=== PATIENT | male | born 1985 | race Caucasian/White ===

== ENCOUNTER 2020-03-02 08:01 | Outpatient (CLI) | payer SELFPAY ==
[2020-03-06 21:50] LABS: SARS-CoV-2 RNA Undetected (Undetected); SARS-CoV-2 Specimen Source Nasopharynx
== END 2020-03-02 08:21 ==
PROVIDERS: PCP Family Medicine; Visit Provider Family Medicine
DX: Z11.59 Encounter for screening for other viral diseases (principal)
CPT/HCPCS: U0003

== ENCOUNTER → 2020-09-01 19:43 | Outpatient (REF) | payer SELFPAY ==
[2020-09-01 16:50] LABS: Abs Immature Grans 0.03 10^3/uL (0.0-0.06); Absolute Basophil Count 0.08 10^3/uL (0.0-0.2); Absolute Eosinophil Count 0.06 10^3/uL (0.0-0.7); Absolute Lymphocyte Count 1.08 10^3/uL (1.2-3.4); Absolute Monocyte Count 0.49 10^3/uL (0.1-0.8); Absolute Neutrophil Count 2.78 10^3/uL (1.2-6.7); Basophils % 1.8; Eosinophils % 1.3; HCT 37.6 % (40.0-50.0); HGB 12.7 g/dL (13.5-17.5); Immature Grans % 0.7; Lymphocytes % 23.9; MCHC 33.8 % (32.0-36.0); MCV 94.7 fL (80-95); MPV 10.4 fL (8.0-11.0); Monocytes % 10.8; Neutrophils % 61.5; Nucleated RBC 0 %; Platelet Count 265 10^3/uL (130-400); RBC 3.97 10^6/uL (4.36-5.78); RDW 12.6 % (11.8-14.1); RDW-SD 43.9 fL; WBC 4.52 10^3/uL (4.4-10.8)
[2020-09-01 17:03] LABS: ALT 20 U/L (16-63); AST 9 U/L (15-37); Albumin 3.6 g/dL (3.4-5.0); Alkaline Phosphatase 153 U/L (46-116); Anion Gap 23.2 mmol/L (3-11); BUN 12 mg/dL (7-18); Bilirubin, Total 0.4 mg/dL (0.2-1.0); CO2 15.8 mmol/L (21.0-32.0); CREATININE 1.08 mg/dL (0.70-1.30); Calcium 8.5 mg/dL (8.5-10.1); Chloride 92 mmol/L (98-107); Potassium 3.6 mmol/L (3.5-5.1); Sodium 131 mmol/L (136-145); Total Protein 7.1 g/dL (6.4-8.2)
[2020-09-01 17:18] LABS: Cholesterol 411 mg/dL (<200); HDL Cholesterol 49 mg/dL (40-60); Triglyceride 766 mg/dL (<150)
[2020-09-01 17:26] LABS: Glucose 610 mg/dL (74-106)
[2020-09-01 17:41] LABS: LDL CHOLESTEROL 198 mg/dL (<100)
[2020-09-04 10:24] LABS: Hemoglobin A1C >16.9 % (<5.7)
== END ==
LOC: NCHCN 19:43
PROVIDERS: PCP Family Medicine; Visit Provider Nurse Practitioner Family
DX: R22.0 Localized swelling, mass and lump, head (principal); E78.5 Hyperlipidemia, unspecified; K04.7 Periapical abscess without sinus
CPT/HCPCS: 80053; 80061; 82947; 83721; 83036; 85025; 87070; 87205

== ENCOUNTER 2020-09-07 03:01 | Outpatient (CLI) | payer SELFPAY ==
--- NOTE | 2020-09-07 08:30 | DI.CT_ITS ---
EXAM: CT FACIAL W CLINICAL HISTORY: left lower mandibular mass,R22.0. TECHNIQUE: Imaging Protocol: Axial computed tomography images with coronal and sagittal reformatted images were created and reviewed. IV contrast was injected-on the James 350/100 cc COMPARISON: No exams were available for comparison FINDINGS: MAXILLOFACIAL CT SCAN: There is no evidence of facial fractures nor fluid the visualized paranasal sinuses and mastoid air c ells.. There is no evidence of orbital blowout fracture. No significant orbital findings. There is soft tissue swelling lateral to left side of the mandible with a fluid collection measuring approximately 10 x 10 millimeters by 19 millimeter probable abscess. Dental: There are periapical lucencies on both sides of the maxilla representing periapical abscesses as well as lytic areas in both sides of the maxilla. These appear to be dental related. Possible o steomyelitis of maxilla appear there also periapical lucencies in the mandible bilaterally, similar p rocess.. IMPRESSION: Prominent confluent periapical lucencies on both sides of the maxilla consistent with periapical apic es and adjacent lytic areas in the maxilla bilaterally which may represent osteomyelitis. There is n o fluid in the maxillary sinuses. Periportal lucency is also evident on both sides the mandible which are most probably also abscesses There is a 10 x 10 x 19 millimeter fluid collection lateral the left side of the mandible which is pr obably an abscess. No fluid levels evident in the maxillary sinuses and no significant mucosal thickening in the paranas al sinuses nor within the mastoid air cells appear RADIATION DOSE DELIVERED: 445.42mGy.cm Total DLP DATA REPOSITORY: All CT scans at this facility are submitted to the National Radiology Data Registry (NRDR) Dose Index Registry (DIR) with the [employer] (A[employer]). RADIATION OPTIMIZATION: All CT scans at this facility use at least one of these dose optimization te chniques: automated exposure control; mA and/or kV adjustment per patient size (includes targeted exa ms where dose is matched to clinical indication); or iterative reconstruction.
[2020-09-07] MEDS: Omnipaque 350 MG/ML 100 ML BTL IV (15:34)
[2020-09-07] MEDS: Normal Saline - Diluent 50 ML VIAL IV (15:37)
--- NOTE | 2020-09-07 16:06 | DI.VRAD_ITS ---
PROCEDURE INFORMATION: Exam: CT Maxillofacial With Contrast; Mandible Exam date and time: 09/07/2020 3:39 PM Age: 35 years old Clinical indication: Mass, lump, or swelling; Other: Mandibular mass TECHNIQUE: Imaging protocol: Computed tomography maxillofacial with intravenous contrast. Exam focused on the mandible. Radiation optimization: All CT scans at this facility use at least one of these dose optimization techniques: automated exposure control; mA and/or kV adjustment per patient size (includes targeted exams where dose is matched to clinical indication); or iterative reconstruction. Contrast material: OMNIPAQUE 350; Contrast volume: 100 ml; Contrast route: INTRAVENOUS (IV); COMPARISON: No relevant prior studies available. FINDINGS: Orbital cavity: Orbits are normal. Globes are unremarkable. Bones/joints: See Dental finding. Paranasal sinuses: Normal. No air-fluid levels. Soft tissues: Soft tissue swelling to the left of the mandible. Fluid collection lateral to the left mandible measures 10 x 9 mm. Series 3, image 47 -61. It measures 2 cm in the craniocaudal dimension. Series 4, image 46 May represent abscess. Dental: Periapical lucencies in the maxilla may represent periapical abscess. Lytic areas in the maxilla bilaterally. Series 3 image 81-84 . May represent osteomyelitis. . Periapical lucencies in the mandible bilaterally consistent with periapical abscesses.. IMPRESSION: 1. Periapical lucencies in the maxilla may represent periapical abscess. Lytic areas in the maxilla bilaterally. Series 3 image 81-84 . May represent osteomyelitis. . 2. Periapical lucencies in the mandible bilaterally consistent with periapical abscesses.. 3. Fluid collection lateral to the left mandible measures 10 x 9 mm. Series 3, image 47 -61. It measures 2 cm in the craniocaudal dimension. Series 4, image 46 May represent abscess. Dictated and Authenticated by: Mando Nelson MD. Ordering:DIPTI Sutton MD
== END 2020-09-07 03:21 ==
PROVIDERS: PCP Family Medicine; Visit Provider Nurse Practitioner Family
DX: R22.0 Localized swelling, mass and lump, head (principal); M27.8 Other specified diseases of jaws
CPT/HCPCS: 70487; J3490

== ENCOUNTER 2020-09-07 18:14 | Inpatient (IN) | payer MEDICAID, SELFPAY ==
[2020-09-07] VITALS (9 sets, daily range): BP systolic 111–132; BP diastolic 63–83; PULSE 96–114; RESP 14–22; TEMP 36.4–36.6; O2SAT 95–99
[2020-09-07] MEDS: Normal Saline 1,000 ML 1000 ML IV (18:55)
--- NOTE | 2020-09-07 19:05 | W.ED.GENAD ---
Discharge Plan Disposition Patient Disposition: [facility] INPATIENT Condition: Stable Discharge Details Clinical Impression: DKA (diabetic ketoacidoses), Hyponatremia, Acute osteomyelitis of mandible, Dental abscess Admit Date/Time: 09/07/20 20:54 Admit Provider: Silviano Arellano Attending Provider: Silviano Arellano Primary Care Provider: Adolfo Trammell ED Provider: Elidia Nichole Discharge Data Discharge Date/Time-TO BE ENTERED AT DEPARTURE: 09/07/20 22:59 Medical Decision Making 35-year-old male with a history of GERD and former prescription drug abuse currently on Suboxone presents for evaluation and admission for potential DKA with osteomyelitis noted on outpatient base CT today. Glucose on arrival 532. Heart rate 110. Blood pressure within normal limits. He is afebrile and appears nontoxic. He has poor dentition throughout. No obvious dental abscesses noted although he does have left lower jaw swelling noted externally. No drooling, trismus, lymphadenopathy or submandibular swelling. Lungs clear bilaterally. Outpatient facial CT noted: Prominent confluent periapical lucencies on both sides of the maxilla consistent with periapical apices and adjacent lytic areas in the maxilla bilaterally which may represent osteomyelitis. There is no fluid in the maxillary sinuses. Periportal lucency is also evident on both sides the mandible which are most probably also abscesses There is a 10 x 10 x 19 millimeter fluid collection lateral the left side of the mandible which is probably an abscess. No fluid levels evident in the maxillary sinuses and no significant mucosal thickening in the paranasal sinuses nor within the mastoid air cells. Case discussed with [facility] ENT who reviewed images. Recommend medical management at this time with IV antibiotics. Recommend Unasyn 3 g IV every 6 hours. No recommendation for transfer or acute intervention at this time including IV drainage. Recommend management of DKA at this time and then follow-up with oral surgery as outpatient. Labs reviewed. Normal white blood cell count. VBG notes a pH of 7.36. Bicarb 22. Lactate 3.5. Sodium 123. Potassium 3.3. Bicarb 21.9, anion gap 16.1. Glucose 610. Urinalysis no ketones. Will treat with 8 units of insulin and insulin drip. Will give potassium supplementation. Case discussed with hospitalist who accepts patient for admission. Patient is agreeable with plan. Imaging Data Radiologic Study: Radiologist's impression: CT FACIAL W CLINICAL HISTORY: left lower mandibular mass,R22.0. TECHNIQUE: Imaging Protocol: Axial computed tomography images with coronal and sagittal reformatted images were created and reviewed. IV contrast was injected-on the James 350/100 cc COMPARISON: No exams were available for comparison FINDINGS: MAXILLOFACIAL CT SCAN: There is no evidence of facial fractures nor fluid the visualized paranasal sinuses and mastoid air cells.. There is no evidence of orbital blowout fracture. No significant orbital findings. There is soft tissue swelling lateral to left side of the mandible with a fluid collection measuring approximately 10 x 10 millimeters by 19 millimeter probable abscess. Dental: There are periapical lucencies on both sides of the maxilla representing periapical abscesses as well as lytic areas in both sides of the maxilla. These appear to be dental related. Possible osteomyelitis of maxilla appear there also periapical lucencies in the mandible bilaterally, similar process.. IMPRESSION: Prominent confluent periapical lucencies on both sides of the maxilla consistent with periapical apices and adjacent lytic areas in the maxilla bilaterally which may represent osteomyelitis. There is no fluid in the maxillary sinuses. Periportal lucency is also evident on both sides the mandible which are most probably also abscesses There is a 10 x 10 x 19 millimeter fluid collection lateral the left side of the mandible which is probably an abscess. No fluid levels evident in the maxillary sinuses and no significant mucosal thickening in the paranasal sinuses nor within the mastoid air cells. HPI General Mode of arrival: ambulatory. Date/Time Provider Initiated Documentation: 09/07/20 18:17. Limitations to Documentation: no limitations. Information obtained by: patient. HPI Narrative: Patient is a 35-year-old male with a history of GERD, former prescription drug abuse currently on Suboxone for past 7 years, history of chewing tobacco who presents after sent by [facility] for further evaluation of hyperglycemia and osteomyelitis noted in mandible today on outpatient facial CT. Patient states he has had left lower jaw swelling and minimal pain for the past 6 weeks which has been treated by [facility] with 2 rounds of penicillin and 1 round of Augmentin which she finished today. He states they referred him for outpatient facial CT which today noted dental abscesses and left-sided mandible osteomyelitis. He returned back to [facility] office today and his blood sugar was greater than 1000 and he was told to go directly to the ER. Glucose on arrival 532. Patient denies any significant dental or jaw pain and states he mainly has left lower jaw swelling. He denies any fever, sore throat, difficulty swallowing, chest pain or shortness of breath. He does admit to polyuria and polydipsia recently. He was unaware of a history of diabetes. Related Data Home Medications Medication Instructions Recorded Confirmed buprenorphine-naloxone [Suboxone 8 1 ea SUBLINGUAL DAILY film 09/04/14 09/07/20 Mg-2 Mg Sl Film] omeprazole 40 mg capsule,delayed 40 mg PO DAILY #90 cap 03/07/20 09/07/20 release albuterol sulfate 90 mcg/actuation 2 puff IH Q4H PRN #6.7 g 09/01/20 09/07/20 aerosol inhaler amoxicillin 875 mg-potassium 1 tab PO BID #14 tab 09/01/20 09/07/20 clavulanate 125 mg tablet chlorhexidine gluconate 0.12 % 15 ml MUCOUS MEMBRANE BID #473 ml 09/01/20 09/07/20 mouthwash gabapentin 1,600 mg PO HS 09/07/20 09/07/20 Previous Rx's Medication Instructions Recorded omeprazole 40 mg capsule,delayed 40 mg PO DAILY #90 cap 03/07/20 release albuterol sulfate 90 mcg/actuation 2 puff IH Q4H PRN #6.7 g 09/01/20 aerosol inhaler amoxicillin 875 mg-potassium 1 tab PO BID #14 tab 09/01/20 clavulanate 125 mg tablet chlorhexidine gluconate 0.12 % 15 ml MUCOUS MEMBRANE BID #473 ml 09/01/20 mouthwash Allergies Allergy/AdvReac Type Severity Reaction Status Date / Time No Known Allergies Allergy Verified 09/07/20 18:23 General Stated Complaint: Diabetes SHANTHI: 3 Review of Systems All systems reviewed & are unremarkable except as noted in HPI and below Constitutional Constitutional: Reports as per HPI, Denies chills and Denies fever(s) Eyes Eyes: Denies blurry vision ENT Ears, Nose, Mouth, and Throat: Denies dizziness, Denies sore throat, Denies throat swelling and Reports other (Left jaw swelling) Cardiovascular Cardiovascular: Denies chest pain and Denies dyspnea Respiratory Respiratory: Denies cough and Denies dyspnea Gastrointestinal Gastrointestinal: Denies abdominal pain, Denies diarrhea and Denies vomiting Genitourinary Genitourinary: Denies hematuria, Denies dysuria and Reports other (Polyuria) Musculoskeletal Musculoskeletal: Denies back pain and Denies numbness Integumentary/Breasts Skin/Breast: Denies lesions and Denies rash Neurologic Neurologic: Denies dizziness, Denies localized weakness and Denies numbness Allergic/Immunologic Allergic/Immunologic: Denies throat swelling COUNTS INCLUDE 234 BEDS AT THE [facility] Medical History (Updated 09/09/20 @ 09:20 by Valeriano Moses) GERD (gastroesophageal reflux disease) Hyperlipidemia Opioid dependence on agonist therapy Tobacco chew use Type 1 diabetes mellitus Surgical History Vasectomy (09/24/17) Social History Smoking/Tobacco Use Status: Current every day Tobacco Type: smokeless tobacco Smokeless tobacco user: chewing tobacco Quit status: not considering quitting Smoking risk assessment performed?: Yes Alcohol Intake: current Alcohol Intake frequency: 0-2 drinks per day Alcohol type: beer Drug use: Daily Substance use type: marijuana Details: pt states he has been cutting back on alcohol, has 3 drinks every other day. Had two beers on [address] here. Caregiver/Support person: No Household members: significant other and children Housing: apartment Communication Needs: None Do you need help understanding health information?: Rarely Pets and animals: No Sexually active: Yes Do you think of yourself as: straight/heterosexual Current gender identity: male What is your relationship status?: living with partner How often do you talk on the phone with friends or family?: three or more times per week How often do you get together with friends or relatives?: three or more times per week How often do you attend bahai or tenriism services?: decline to answer Do you belong to any clubs or organized social groups?: decline to answer Panel score (0-1 are the most socially isolated patients): 2 What type of physical activity do you participate in: none Frequency: does not exercise Barbi/Alevism: None Special barbi needs: No Seatbelt use: always Helmet use: No Drive intox or ride w/intox crew car driver: No Do you feel safe at home: Yes Do you feel safe in your relationship?: Yes Exam Const General: cooperative and no acute distress Orientation: alert, awake and oriented x3 HENMT Head: normal to inspection Ears: hearing grossly normal bilaterally, external ears normal and TM's normal bilaterally General nose exam: external nose normal Face and sinus: normal facial exam Face images: 1. 2 x 2 centimeter localized area of facial swelling. Mouth: oral mucosae normal and other (Tobacco chew noted in front of right lower teeth) Teeth and gingiva: poor dentition (No obvious fluctuant abscesses noted around teeth.) Throat: posterior oropharynx normal Eyes General: appearance normal, both eyes and all related structures Eyelids: eyelids normal Pupils: PERRL EOM: EOM intact bilaterally Neck Neck: normal visual inspection Lymphatic: no lymphadenopathy noted Chest Chest: normal inspection of the chest Resp Effort & Inspection: normal respiratory effort and able to speak in complete sentences Auscultation: clear to auscultation bilaterally Cardio Rate: regular rate Rhythm: regular rhythm GI Inspection: normal to inspection Palpation: soft, not firm, no guarding, no hepatosplenomegaly, no masses and nontender Auscultation: normal bowel sounds Skin General skin exam: no rashes or lesions noted Neuro General: patient alert and patient awake Cognition: normal cognition Speech: speech normal Gait: normal gait Motor: muscle tone normal throughout Sensory Exam: no sensory deficits noted Extrem General: normal to inspection, full ROM and capillary refill normal Psych Appearance: grossly normal Mental Status: mental status grossly normal Speech and Movement: speech and movement normal Affect: normal affect Thought Process: normal Course Vital Signs Vital signs: Vital Signs Temperature 97.5 F L 09/07/20 18:19 Pulse 114 H 09/07/20 18:19 Respiratory Rate 22 09/07/20 18:19 Blood Pressure 132/83 09/07/20 18:19 Pulse Oximetry 99 09/07/20 18:19 Temperature 97.5 F L 09/07/20 18:19 Temperature Source Skin 09/07/20 18:19 Pulse 114 H 09/07/20 18:19 Respiratory Rate 22 09/07/20 18:19 Respiratory Effort Non-Labored 09/07/20 18:24 Blood Pressure 132/83 09/07/20 18:19 Blood Pressure Position Sitting 09/07/20 18:19 Pulse Oximetry 99 09/07/20 18:19 Oxygen Delivery Method Room Air 09/07/20 18:19 Oxygen Flow Rate 0 09/07/20 18:19 Pain Level 0 09/07/20 18:19
[2020-09-07 19:08] LABS: Abs Immature Grans 0.05 10^3/uL (0.0-0.06); Absolute Eosinophil Count 0.06 10^3/uL (0.0-0.7); Absolute Lymphocyte Count 1.63 10^3/uL (1.2-3.4); Absolute Monocyte Count 0.49 10^3/uL (0.1-0.8); Basophils % 1.4; Eosinophils % 0.9; Immature Grans % 0.7; Lymphocytes % 23.2; MCH 33.1 pg (27.0-33.0); MCHC 35.9 % (32.0-36.0); MCV 92.2 fL (80-95); MPV 9.5 fL (8.0-11.0); Neutrophils % 66.8; Nucleated RBC 0 %; Platelet Count 306 10^3/uL (130-400); RBC 4.23 10^6/uL (4.36-5.78); RDW 12.2 % (11.8-14.1); RDW-SD 41.6 fL; WBC 7.03 10^3/uL (4.4-10.8)
[2020-09-07 19:09] LABS: BE (Venous) -4 mmol/L (-2-3); HCO3 (Venous) 22 mmol/L (23-28); O2 Sat (Venous) 71 %; TCO2 (Venous) 20 mmol/L (24-29); pCO2 (Venous) 39 mmHg (41-51); pH (Venous) 7.36 (7.31-7.41); pO2 (Venous) 36 mmHg
[2020-09-07 19:11] LABS: Lactate 3.5 mmol/L (0.6-1.4)
[2020-09-07 19:11] LABS: Bilirubin Negative (Negative); Blood Trace-intact (Negative); Clarity Clear (Clear); Glucose >=1000 mg/dL (Negative); Ketones 40 mg/dL (Negative); Leukocyte Esterase Negative (Negative); Nitrite Negative (Negative); Specific Gravity <= 1.005 (1.005-1.025); Urobilinogen 0.2 EU/dL (Up TO 0.2); pH 5.5 (5-8)
[2020-09-07 19:23] LABS: Bacteria Negative HPF (Negative); C & S Indicated? No; Crystals Negative HPF (Negative); Epithelial Cells Negative HPF (Negative); Mucus Negative (Negative); WBC Negative HPF (0-5)
[2020-09-07 19:32] LABS: Alkaline Phosphatase 176 U/L (46-116); Anion Gap 16.1 mmol/L (3-11); BUN 8 mg/dL (7-18); Bilirubin, Total 0.4 mg/dL (0.2-1.0); CO2 21.9 mmol/L (21.0-32.0); Calcium 8.9 mg/dL (8.5-10.1); Chloride 85 mmol/L (98-107); Potassium 3.3 mmol/L (3.5-5.1); Total Protein 8.4 g/dL (6.4-8.2)
[2020-09-07 19:35] LABS: Glucose 610 mg/dL (74-106)
[2020-09-07 19:36] LABS: Sodium 123 mmol/L (136-145)
--- NOTE | 2020-09-07 19:40 | NUR.NOTE ---
LAb critical gluecose 610 and critical sodium of 123 H[facility]ER ed Nursing Note:
[2020-09-07 19:52] LABS: AST 16 U/L (15-37)
[2020-09-07 19:53] LABS: ALT 28 U/L (16-63)
[2020-09-07] MEDS: Insulin REGULAR-Human 100 UNITS/ML UNIT 8 UNITS SC (19:54)
[2020-09-07] MEDS: AMPICILLIN/SULBACTAM 3 GM in Normal Saline 100 ML IVPB (20:00)
--- NOTE | 2020-09-07 20:32 | W.PM.HP.N ---
Date of service: 09/07/20 Time of Service: 20:33 Assessment and Plan Assessment and plan (1) Diabetic ketoacidosis: Start date: 09/07/20 Start time: 20:45 Status: Acute Assessment and plan: 35yo M with newly diagnosed DM with DKA, marked hyperglycemia, very elevated a1c, and hyperlipidemia. Hyperglycemia is likely worsened by the acute infection. We will start treatment of the DKA with IVF and insulin drip until the gap closes (likely overnight), then transition to SQ insulin and possibly oral meds as we near discharge. (2) Hyponatremia: Start date: 09/07/20 Start time: 20:48 Status: Acute Assessment and plan: Likely due to DKA. Provide IVF and follow. (3) Acute osteomyelitis of mandible: Start date: 09/07/20 Start time: 20:49 Status: Acute Assessment and plan: CT reviewed with ENT at [facility]. They encouraged Unasyn and treatment of DKA. No need for drainage. ENT or maxillofacial surg follow-up as out-patient. (4) Dental abscess: Status: Acute Assessment and plan: As above. Full Code History of Present Illness 35yo M with no known PMH other than OUD (7 years sober on Suboxone) has had a dental abscess for the last month with pain and swelling over the left mandible. He has been given courses of penicillin and Augmentin without relief. He went to his PCP's office over the last week (09/01 and today). His blood sugars were noted to be very high, so today he was sent from there to the ED. Of note, on 09/01/20, his a1c was found to be >16.9 and a glucose of >600. He reports polydipsia and polyuria over the last 30 days. He reports about 30+ pounds of weight loss over the last 10 months. He also describes decreased peripheral vision recently. He is adopted and so does not know any family history. Review of Systems All systems reviewed & are unremarkable except as noted in HPI and below ENT Ears, Nose, Mouth, and Throat: Reports dental pain [facility] Medical History (Updated 09/07/20 @ 20:01 by Elidia Nichole DO) GERD (gastroesophageal reflux disease) Surgical History Vasectomy (09/24/17) Social History Smoking/Tobacco Use Status: Current every day Tobacco Type: smokeless tobacco Smokeless tobacco user: chewing tobacco Quit status: not considering quitting Smoking risk assessment performed?: Yes Alcohol Intake: current Alcohol Intake frequency: 0-2 drinks per day Alcohol type: beer Drug use: Daily Substance use type: marijuana Details: pt states he has been cutting back on alcohol, has 3 drinks every other day. Had two beers on way here. Caregiver/Support person: No Household members: significant other and children Housing: apartment Communication Needs: None Do you need help understanding health information?: Rarely Pets and animals: No Sexually active: Yes Do you think of yourself as: straight/heterosexual Current gender identity: male What is your relationship status?: living with partner How often do you talk on the phone with friends or family?: three or more times per week How often do you get together with friends or relatives?: three or more times per week How often do you attend restorationist or restoration services?: decline to answer Do you belong to any clubs or organized social groups?: decline to answer Panel score (0-1 are the most socially isolated patients): 2 What type of physical activity do you participate in: none Frequency: does not exercise Barbi/Faith: None Special barbi needs: No Seatbelt use: always Helmet use: No Drive intox or ride w/intox uke driver: No Do you feel safe at home: Yes Do you feel safe in your relationship?: Yes Meds Home Medications and Allergies Home Medications Medication Instructions Recorded Confirmed Type buprenorphine-naloxone [Suboxone 8 1 ea SUBLINGUAL DAILY film 09/04/14 09/07/20 History Mg-2 Mg Sl Film] Proventil Hfa 1 - 2 puff INHALATION Q4H PRN #1 03/23/18 09/07/20 Clinic inhaler omeprazole 40 mg capsule,delayed 40 mg PO DAILY #90 cap 03/07/20 09/07/20 Rx release albuterol sulfate 90 mcg/actuation 2 puff IH Q4H PRN #6.7 g 09/01/20 09/07/20 Rx aerosol inhaler amoxicillin 875 mg-potassium 1 tab PO BID #14 tab 09/01/20 09/07/20 Rx clavulanate 125 mg tablet chlorhexidine gluconate 0.12 % 15 ml MUCOUS MEMBRANE BID #473 ml 09/01/20 09/07/20 Rx mouthwash gabapentin 1,600 mg PO HS 09/07/20 09/07/20 History Allergies Allergy/AdvReac Type Severity Reaction Status Date / Time No Known Allergies Allergy Verified 09/07/20 18:23 Exam Const General: cooperative, healthy appearing, comfortable and no acute distress HENMT Head: normal to inspection Mouth: oral mucosae normal and moist mucous membranes Teeth and gingiva: poor dentition Eyes General: appearance normal, both eyes and all related structures EOM: EOM intact bilaterally Direct ophthalmoscopy: fundi normal bilaterally Neck Lymphatic: no lymphadenopathy noted Resp Effort & Inspection: normal respiratory effort Auscultation: clear to auscultation bilaterally Percussion: percussion normal Cardio Rate: regular rate Rhythm: regular rhythm GI Inspection: normal to inspection Palpation: soft Percussion: normal to percussion Auscultation: normal bowel sounds Skin General skin exam: no rashes or lesions noted Wounds: no wounds Neuro General: patient alert, patient awake and patient oriented x3 Extrem General: normal to inspection and full ROM Psych Appearance: grossly normal Speech and Movement: speech and movement normal Results Labs Result diagrams: 09/07/20 18:50 09/07/20 18:50 Labs: Laboratory Results - last 24 hr 09/07/20 09/07/20 09/07/20 18:45 18:50 18:50 WBC RBC Hgb Hct MCV MCH MCHC RDW Plt Count MPV Immature Gran % Neutrophils % Lymphocytes % Monocytes % Eosinophils % Basophils % Nucleated RBC % Absolute Neutrophils Absolute Lymphocytes Absolute Monocytes Absolute Eosinophils Absolute Basophils VBG pH VBG pCO2 VBG pO2 VBG HCO3 VBG Total CO2 VBG O2 Saturation VBG Base Excess VBG Lactate 3.5 H* Sodium 123 L* Potassium 3.3 L Chloride 85 L Carbon Dioxide 21.9 Anion Gap 16.1 H BUN 8 Creatinine 1.0 Estimated GFR/1.73 m2 >= 60.00 Glucose 610 H* Calcium 8.9 Total Bilirubin 0.4 AST 16 ALT 28 Alkaline Phosphatase 176 H Total Protein 8.4 H Albumin 4.0 Urine Color Yellow Urine Clarity Clear Urine pH 5.5 Ur Specific Franklin <= 1.005 Urine Protein Negative Urine Ketones 40 H Urine Blood Trace-intact H Urine Nitrite Negative Urine Bilirubin Negative Urine Urobilinogen 0.2 Ur Leukocyte Esterase Negative Urine RBC 3-5 H Urine WBC Negative Ur Epithelial Cells Negative Urine Crystals Negative Urine Bacteria Negative Urine Mucus Negative Ur Culture Indicated? No Urine Glucose >=1000 H 09/07/20 09/07/20 18:50 18:50 WBC 7.03 RBC 4.23 L Hgb 14.0 Hct 39.0 L MCV 92.2 MCH 33.1 H MCHC 35.9 RDW 12.2 Plt Count 306 MPV 9.5 Immature Gran % 0.7 Neutrophils % 66.8 Lymphocytes % 23.2 Monocytes % 7.0 Eosinophils % 0.9 Basophils % 1.4 Nucleated RBC % 0 Absolute Neutrophils 4.70 Absolute Lymphocytes 1.63 Absolute Monocytes 0.49 Absolute Eosinophils 0.06 Absolute Basophils 0.10 VBG pH 7.36 VBG pCO2 39 L VBG pO2 36 VBG HCO3 22 L VBG Total CO2 20 L VBG O2 Saturation 71 VBG Base Excess -4 L VBG Lactate Sodium Potassium Chloride Carbon Dioxide Anion Gap BUN Creatinine Estimated GFR/1.73 m2 Glucose Calcium Total Bilirubin AST ALT Alkaline Phosphatase Total Protein Albumin Urine Color Urine Clarity Urine pH Ur Specific Franklin Urine Protein Urine Ketones Urine Blood Urine Nitrite Urine Bilirubin Urine Urobilinogen Ur Leukocyte Esterase Urine RBC Urine WBC Ur Epithelial Cells Urine Crystals Urine Bacteria Urine Mucus Ur Culture Indicated? Urine Glucose Last Vital Signs Temp 36.4 C L 09/07/20 18:19 Pulse 114 H 09/07/20 18:19 Resp 22 09/07/20 18:19 BP 132/83 09/07/20 18:19 Pulse Ox 99 09/07/20 18:19 COVID-19 Screening Have you, or household traveled for leisure in last 14 days?: No Had IN PERSON contact w/suspected or confirmed C-19 person: No
[2020-09-07] MEDS: INSULIN REGULAR IN 0.9 % NACL 100 UNIT/100 ML BAG 6.214 UNIT IV (20:35)
[2020-09-07] MEDS: POTASSIUM CHLORIDE 20 MEQ/100 ML BAG 50 MEQ IVPB (20:50)
[2020-09-07 21:33] LABS: PHOSPHORUS 2.9 mg/dL (2.6-4.7)
[2020-09-08] VITALS (42 sets, daily range): BP systolic 106–114; BP diastolic 64–86; PULSE 69–85; RESP 8–17; TEMP 35.6–37.1; O2SAT 95–98
[2020-09-08] MEDS: Gabapentin 800 MG TAB 1600 MG PO ×2 (00:15→22:13)
[2020-09-08] MEDS: Normal Saline 1,000 ML 125 ML IV (00:15)
[2020-09-08] MEDS: AMPICILLIN/SULBACTAM 3 GM in Normal Saline 100 ML IVPB ×4 (02:16→20:36)
[2020-09-08 07:40] LABS: PHOSPHORUS 3.4 mg/dL (2.6-4.7)
[2020-09-08 07:43] LABS: Anion Gap 8.1 mmol/L (3-11); BUN 10 mg/dL (7-18); CO2 28.9 mmol/L (21.0-32.0); CREATININE 0.7 mg/dL (0.70-1.30); Calcium 8.3 mg/dL (8.5-10.1); Chloride 101 mmol/L (98-107); Glucose 195 mg/dL (74-106); Sodium 138 mmol/L (136-145)
[2020-09-08 07:45] LABS: Potassium 2.2 mmol/L (3.5-5.1)
[2020-09-08] MEDS: Buprenorphine/Naloxone 8 mg/2 mg FILM 1 EACH SL (08:16)
[2020-09-08] MEDS: Potassium Chloride 20 MEQ TABCR PO ×2 (08:17→20:35)
[2020-09-08] MEDS: POTASSIUM CHLORIDE/D5-0.45NACL 1,000 ML 150 MEQ IV ×2 (09:04→15:37)
[2020-09-08] MEDS: POTASSIUM CHLORIDE 20 MEQ/100 ML BAG 50 MEQ IVPB ×2 (09:05→12:02)
[2020-09-08 10:21] LABS: Magnesium 2.1 mg/dL (1.8-2.4)
--- NOTE | 2020-09-08 11:09 | PGE_ITS ---
Date of Service Date of service: 09/08/20 Time of Service: 11:09 Assessment and Plan Assessment and plan (1) Diabetic ketoacidosis: Status: Acute Assessment and plan: Symptoms have improved. Anion gap has closed. If blood sugars below 200 this morning, patient switched to D5 half-normal with potassium for fluids. He like to eat I think we can allow this. If he is able to eat and his gap stays closed with afternoon labs, I will transition him to subcutaneous insulin. (2) Type 1 diabetes mellitus: Status: Acute Assessment and plan: Given the patient's young age, thin body habitus, sensitivity to insulin, and presentation with acute diabetic ketoacidosis, I f eel comfortable with the diagnosis of type 1 diabetes without antibody testing. He certainly needs insulin, with treatment as above. I have requested diabetic education and we did discuss the basics. We will plan on endocrinology follow- up as an outpatient at [facility]. We do need to make sure he has all his monitoring equipment and insulin and hypoglycemic episode medications when he is ready for discharge. (3) Dental abscess: Status: Acute Assessment and plan: Continue IV ampicillin/sulbactam. (4) Hypokalemia: Status: Acute Assessment and plan: Related to DKA. Repleted IV this morning, magnesium pending and will replete as needed. He is likely to need several doses of potassium. (5) Opioid dependence on agonist therapy: Status: Acute Assessment and plan: Has been stable on buprenorphine/naloxone. Continue outpatient dose. (6) DVT prophylaxis: Status: Acute Assessment and plan: I will add Lovenox despite his young age given he smokes and is currently tied to an IV. (7) Discharge planning issues: Status: Acute Assessment and plan: If the patient tolerates lunch and then transition off the drip, will transition to the floor later today or tomorrow morning. As above, he will need additional diabetic teaching and care management assistance around insurance to cover his diabetic meds and equipment before discharge. Subjective Subjective Patient reports: feels better; denies diarrhea, vomiting and shortness of breath Interval history since last seen: 24 hr: Has been on insulin drip overnight. S: Was able to sleep through the night for the first time in 2 months, as he is no longer constantly urinating. His face feels a little better. He still feels a little cloudy headed, but not frankly dizzy. No fevers or chills. No nausea or vomiting. No abdominal pain. He does feel like he would like to eat. Exam Narrative Exam Narrative: GEN: Alert and oriented, pleasent and cooperative, gives linear history. No acute distress at rest. HEENT: Conjunctiva clear, no icterus. MMM, poor dentition. Neck is supple with no masses. LUNGS: CTAB with normal effort CV: RRR with no murmurs, gallops, or rubs. ABD: +BS, soft, NT/ND EXT: no cyanosis, clubbing, or edema SKIN: No rashs or open wounds. PSYCH: normal mood and affect Objective Last Vital Signs Temp 37.1 C 09/08/20 05:00 Pulse 83 09/08/20 00:15 Resp 13 09/08/20 06:40 BP 112/86 09/08/20 05:00 Pulse Ox 97 09/08/20 06:40 Laboratory Results - last 24 hr 09/07/20 09/07/20 09/07/20 18:45 18:50 18:50 WBC RBC Hgb Hct MCV MCH MCHC RDW Plt Count MPV Immature Gran % Neutrophils % Lymphocytes % Monocytes % Eosinophils % Basophils % Nucleated RBC % Absolute Neutrophils Absolute Lymphocytes Absolute Monocytes Absolute Eosinophils Absolute Basophils VBG pH VBG pCO2 VBG pO2 VBG HCO3 VBG Total CO2 VBG O2 Saturation VBG Base Excess VBG Lactate 3.5 H* Sodium 123 L* Potassium 3.3 L Chloride 85 L Carbon Dioxide 21.9 Anion Gap 16.1 H BUN 8 Creatinine 1.0 Estimated GFR/1.73 m2 >= 60.00 Glucose 610 H* Calcium 8.9 Phosphorus Magnesium Total Bilirubin 0.4 AST 16 ALT 28 Alkaline Phosphatase 176 H Total Protein 8.4 H Albumin 4.0 Urine Color Yellow Urine Clarity Clear Urine pH 5.5 Ur Specific [place] <= 1.005 Urine Protein Negative Urine Ketones 40 H Urine Blood Trace-intact H Urine Nitrite Negative Urine Bilirubin Negative Urine Urobilinogen 0.2 Ur Leukocyte Esterase Negative Urine RBC 3-5 H Urine WBC Negative Ur Epithelial Cells Negative Urine Crystals Negative Urine Bacteria Negative Urine Mucus Negative Ur Culture Indicated? No Urine Glucose >=1000 H 09/07/20 09/07/20 09/07/20 18:50 18:50 18:50 WBC 7.03 RBC 4.23 L Hgb 14.0 Hct 39.0 L MCV 92.2 MCH 33.1 H MCHC 35.9 RDW 12.2 Plt Count 306 MPV 9.5 Immature Gran % 0.7 Neutrophils % 66.8 Lymphocytes % 23.2 Monocytes % 7.0 Eosinophils % 0.9 Basophils % 1.4 Nucleated RBC % 0 Absolute Neutrophils 4.70 Absolute Lymphocytes 1.63 Absolute Monocytes 0.49 Absolute Eosinophils 0.06 Absolute Basophils 0.10 VBG pH 7.36 VBG pCO2 39 L VBG pO2 36 VBG HCO3 22 L VBG Total CO2 20 L VBG O2 Saturation 71 VBG Base Excess -4 L VBG Lactate Sodium Potassium Chloride Carbon Dioxide Anion Gap BUN Creatinine Estimated GFR/1.73 m2 Glucose Calcium Phosphorus 2.9 Magnesium Total Bilirubin AST ALT Alkaline Phosphatase Total Protein Albumin Urine Color Urine Clarity Urine pH Ur Specific [place] Urine Protein Urine Ketones Urine Blood Urine Nitrite Urine Bilirubin Urine Urobilinogen Ur Leukocyte Esterase Urine RBC Urine WBC Ur Epithelial Cells Urine Crystals Urine Bacteria Urine Mucus Ur Culture Indicated? Urine Glucose 09/07/20 09/08/20 09/08/20 20:56 06:20 06:20 WBC RBC Hgb Hct MCV MCH MCHC RDW Plt Count MPV Immature Gran % Neutrophils % Lymphocytes % Monocytes % Eosinophils % Basophils % Nucleated RBC % Absolute Neutrophils Absolute Lymphocytes Absolute Monocytes Absolute Eosinophils Absolute Basophils VBG pH VBG pCO2 VBG pO2 VBG HCO3 VBG Total CO2 VBG O2 Saturation VBG Base Excess VBG Lactate Sodium Cancelled 138 D Potassium Cancelled 2.2 L* D Chloride Cancelled 101 Carbon Dioxide Cancelled 28.9 Anion Gap Cancelled 8.1 BUN Cancelled 10 Creatinine Cancelled 0.7 Estimated GFR/1.73 m2 Cancelled >= 60.00 Glucose Cancelled 195 H D Calcium Cancelled 8.3 L Phosphorus 3.4 Magnesium Total Bilirubin AST ALT Alkaline Phosphatase Total Protein Albumin Urine Color Urine Clarity Urine pH Ur Specific [place] Urine Protein Urine Ketones Urine Blood Urine Nitrite Urine Bilirubin Urine Urobilinogen Ur Leukocyte Esterase Urine RBC Urine WBC Ur Epithelial Cells Urine Crystals Urine Bacteria Urine Mucus Ur Culture Indicated? Urine Glucose 09/08/20 09/08/20 09/08/20 06:20 08:21 20:54 WBC RBC Hgb Hct MCV MCH MCHC RDW Plt Count MPV Immature Gran % Neutrophils % Lymphocytes % Monocytes % Eosinophils % Basophils % Nucleated RBC % Absolute Neutrophils Absolute Lymphocytes Absolute Monocytes Absolute Eosinophils Absolute Basophils VBG pH VBG pCO2 VBG pO2 VBG HCO3 VBG Total CO2 VBG O2 Saturation VBG Base Excess VBG Lactate Sodium Cancelled Potassium Cancelled Chloride Cancelled Carbon Dioxide Cancelled Anion Gap Cancelled BUN Cancelled Creatinine Cancelled Estimated GFR/1.73 m2 Cancelled Glucose Cancelled Calcium Cancelled Phosphorus Cancelled Magnesium 2.1 Total Bilirubin AST ALT Alkaline Phosphatase Total Protein Albumin Urine Color Urine Clarity Urine pH Ur Specific [place] Urine Protein Urine Ketones Urine Blood Urine Nitrite Urine Bilirubin Urine Urobilinogen Ur Leukocyte Esterase Urine RBC Urine WBC Ur Epithelial Cells Urine Crystals Urine Bacteria Urine Mucus Ur Culture Indicated? Urine Glucose
--- NOTE | 2020-09-08 12:04 | INITIAL_ITS ---
- If Service Date Differs Date of service: 09/08/20 Time of Service: 12:04 Care Management Initial Assess REASON FOR HOSPITALIZATION:: DKA PAST MEDICAL HISTORY/PAST SURGICAL HISTORY:: Medical History. GERD (gastroesophageal reflux disease). Surgical History. Vasectomy (09/24/17) PREVIOUS FUNCTIONAL STATUS/SOCIAL/FAMILY SUPPORTS:: Manjinder lives in [place] with his s/o Jeniffer and their children. His mother, Zoraida lives [place]. He is independent at baseline. CURRENT FUNCTIONAL STATUS:: CM is unable to meet with Manjinder today, as he is on precautions for Covid 19. CM attempted to call Manjinder on his cell phone with no answer. CM discussed his care plan with his RN. He remains at ICU level of care. Diabetic education has been consulted. CM will continue to follow. ADVANCE DIRECTIVES:: None on file. CM will offer forms. Has patient been provided with info about the portal/API?: No Did the patient sign up for the portal?: No CODE STATUS:: Full Code INSURANCE COVERAGE / FINANCIAL ISSUES:: Self pay. CM will discuss insurance, referral to [facility]. CURRENT HOME/COMMUNITY SERVICES/EQUIPMENT:: No current services or equipment. PRIMARY CARE PHYSICIAN:: Adolfo Trammell POTENTIAL DISCHARGE NEEDS:: Diabetic education, follow up appointments PATIENT/FAMILY EDUCATION NEEDS:: Review discharge instructions regarding medications and diabetic education, discussion of self care and self management. ANTICIPATED BARRIERS TO DISCHARGE:: None identified at this time. TRANSPORTATION:: Via private vehicle by family. PLAN:: Manjinder remains at ICU level of care. He will return home when medically cleared. His family will drive him home via private vehicle. He will follow up with his PCP and discharge plan of care. CM will continue to follow.
[2020-09-08 13:22] LABS: Anion Gap 2.9 mmol/L (3-11); BUN 9 mg/dL (7-18); CO2 31.1 mmol/L (21.0-32.0); CREATININE 0.8 mg/dL (0.70-1.30); Chloride 100 mmol/L (98-107); Glucose 276 mg/dL (74-106); Potassium 3.8 mmol/L (3.5-5.1); Sodium 134 mmol/L (136-145)
[2020-09-08] MEDS: Enoxaparin 40 MG/0.4 ML SYR SC (14:20)
[2020-09-08] MEDS: Insulin Aspart 300 UNITS/3 ML PEN SC ×3 (14:23→18:26)
[2020-09-08] MEDS: Insulin Aspart 300 UNITS/3 ML PEN 6 UNITS SC (16:51)
[2020-09-08] MEDS: Acetaminophen 325 MG TAB 650 MG PO (20:35)
[2020-09-08] MEDS: Normal Saline Flush 10 ML SYR IVP (20:36)
[2020-09-08] MEDS: Insulin Glargine 300 UNITS/3 ML PEN 18 UNITS SC (22:28)
[2020-09-09] VITALS (11 sets, daily range): BP systolic 84–120; BP diastolic 55–82; PULSE 68–93; RESP 7–18; TEMP 35.8–36.5; O2SAT 95–99
[2020-09-09] MEDS: AMPICILLIN/SULBACTAM 3 GM in Normal Saline 100 ML IVPB ×4 (01:47→20:00)
[2020-09-09 03:29] LABS: COVID-19 RT-PCR UVMMC Result Negative (Negative)
[2020-09-09 06:56] LABS: Anion Gap 4.1 mmol/L (3-11); BUN 6 mg/dL (7-18); CO2 32.9 mmol/L (21.0-32.0); CREATININE 0.7 mg/dL (0.70-1.30); Calcium 8.7 mg/dL (8.5-10.1); Chloride 100 mmol/L (98-107); Glucose 180 mg/dL (74-106); Potassium 3.7 mmol/L (3.5-5.1); Sodium 137 mmol/L (136-145)
[2020-09-09] MEDS: Buprenorphine/Naloxone 8 mg/2 mg FILM 1 EACH SL (08:21)
[2020-09-09] MEDS: Potassium Chloride 20 MEQ TABCR PO ×2 (08:21→19:05)
[2020-09-09] MEDS: Insulin Aspart 300 UNITS/3 ML PEN 6 UNITS SC ×3 (08:22→18:08)
[2020-09-09] MEDS: Insulin Aspart 300 UNITS/3 ML PEN SC ×3 (08:26→18:08)
--- NOTE | 2020-09-09 09:13 | PGE_ITS ---
Date of Service Date of service: 09/09/20 Time of Service: 09:14 Assessment and Plan Assessment and plan (1) Diabetic ketoacidosis: Status: Acute Assessment and plan: Ketoacidosis has resolved, now eating and successfully transitioned to basal insulin. See below. (2) Type 1 diabetes mellitus: Status: Acute Assessment and plan: Given the patient's young age, thin body habitus, sensitivity to insulin, and presentation with acute diabetic ketoacidosis, I feel comfortable with the diagnosis of type 1 diabetes without antibody testing. He is gotten some basic teaching, will get additional diabetic education tomorrow. Most currently, he needs medical insurance to cover his insulin testing supplies, and this must be set up prior to discharge. Long-term, we will plan on endocrinology follow-up as an outpatient at [facility]. (3) Dental abscess: Status: Acute Assessment and plan: Continue IV ampicillin/sulbactam. (4) Hypokalemia: Status: Acute Assessment and plan: Related to DKA. Now normalized. (5) Opioid dependence on agonist therapy: Status: Acute Assessment and plan: Has been stable on buprenorphine/naloxone. Continue outpatient dose. (6) Hyperlipidemia: Status: Acute Assessment and plan: Extremely high LDL and hydroglycerides the week before admission. This level he would qualify for statin therapy at his age. However, given his developing acidosis and profound hyperglycemia when these tests were done, I think it should be repeated before initiating therapy. He is likely to still qualify for statin therapy given his type 1 diabetes. (7) Tobacco chew use: Status: Acute Assessment and plan: He is interested in quitting. Has nicotine replacement therapy ordered. He may benefit from lozenge or gum prescription on discharge as follows referral to quit works. (8) DVT prophylaxis: Status: Acute Assessment and plan: Using Lovenox despite his young age. He is actually not a smoker, is now moving around so I think we can stop this. (9) Discharge planning issues: Status: Acute Assessment and plan: Stable off insulin drip. Will transfer to the floor today. He still needs IV antibiotics for the facial infection. Care management has been working on a plan for insurance. Subjective Subjective Patient reports: voiding w/o difficulty; denies diarrhea, blood in stool, nausea, shortness of breath and fever Interval history since last seen: 24 hr: Insulin drip stopped, transitioned to basal bolus insulin She feels well this morning. Denies nausea or vomiting, has been eating. No abdominal pain. Cloudy headedness is improving. He slept well. His legs felt a little stiff this morning, but feel better with moving them. Exam Narrative Exam Narrative: GEN: Alert and oriented, pleasent and cooperative, gives linear history. No acute distress at rest. HEENT: Conjunctiva clear, no icterus. MMM, poor dentition, still with tender swelling along left mandible. neck is supple with no masses. LUNGS: CTAB with normal effort CV: RRR with no murmurs, gallops, or rubs. ABD: +BS, soft, NT/ND EXT: no cyanosis, clubbing, or edema SKIN: No rashs or open wounds. PSYCH: normal mood and affect Objective Last Vital Signs Temp 36.1 C L 09/09/20 04:13 Pulse 71 09/09/20 04:13 Resp 10 L 09/09/20 04:13 BP 84/57 L 09/09/20 04:13 Pulse Ox 95 09/09/20 04:13 Laboratory Results - last 24 hr 09/07/20 09/08/20 09/08/20 21:10 06:20 08:21 Sodium Potassium Chloride Carbon Dioxide Anion Gap BUN Creatinine Estimated GFR/1.73 m2 Glucose Calcium Phosphorus Cancelled Magnesium 2.1 SARS-CoV-2 (PCR) Negative Nasopharyn COVID-19 PCR Not Applicable Ref Test Perform Site [place] [facility] 09/08/20 09/09/20 12:50 06:15 Sodium 134 L 137 Potassium 3.8 D 3.7 Chloride 100 100 Carbon Dioxide 31.1 32.9 H Anion Gap 2.9 L 4.1 BUN 9 6 L Creatinine 0.8 0.7 Estimated GFR/1.73 m2 >= 60.00 >= 60.00 Glucose 276 H 180 H D Calcium 8.0 L 8.7 Phosphorus Magnesium SARS-CoV-2 (PCR) Nasopharyn COVID-19 PCR Ref Test Perform Site
--- NOTE | 2020-09-09 16:13 | CMPROGNOTE_ITS ---
- If Service Date Differs Date of service: 09/09/20 Time of Service: 16:13 Care Management Progress Note S/O: Manjinder was lying in bed when CM met with him. He reported that he was feeling good today, but he has a lot on his mind. He has concerns regarding this new diagnosis of Type 1 diabetes, as it will be a big lifestyle change for him. He is asking for additional education regarding medications, supplies and diet. A consultation with the mechanical laboratory technician has been placed. CM also stated that he can have out patient follow up with the mechanical laboratory technician, which he was happy about. He is also very concerned about not having insurance currently. CM sent a referral to [facility], at his request, for assistance with insurance, as he needs access to care. Per report, he continues to improve, and will be transferred to m/s today. He is happy to have a larger room and more privacy. CM will continue to follow. A: Manjinder is a 35 year old male admitted to [facility] on 09/07/20 for DKA. P:He will return home when medically cleared. His family will drive him home via private vehicle. He will follow up with his PCP and discharge plan of care. CM will continue to follow.
[2020-09-09] MEDS: Normal Saline Flush 10 ML SYR IVP (19:05)
[2020-09-09] MEDS: Insulin Glargine 300 UNITS/3 ML PEN 18 UNITS SC (22:13)
[2020-09-09] MEDS: Gabapentin 800 MG TAB 1600 MG PO (22:15)
[2020-09-10] MEDS: AMPICILLIN/SULBACTAM 3 GM in Normal Saline 100 ML IVPB ×4 (01:51→21:06)
[2020-09-10] MEDS: Normal Saline Flush 10 ML SYR IVP ×3 (01:52→21:06)
[2020-09-10 02:42] VITALS: O2SAT 96
[2020-09-10 08:51] VITALS: BP 118/86; PULSE 87; RESP 16; TEMP 37; O2SAT 98
[2020-09-10] MEDS: Potassium Chloride 20 MEQ TABCR PO ×2 (08:54→21:05)
[2020-09-10] MEDS: Buprenorphine/Naloxone 8 mg/2 mg FILM 1 EACH SL (08:54)
[2020-09-10] MEDS: Insulin Aspart 300 UNITS/3 ML PEN SC ×3 (08:55→17:09)
[2020-09-10] MEDS: Insulin Aspart 300 UNITS/3 ML PEN 6 UNITS SC ×3 (08:56→17:09)
--- NOTE | 2020-09-10 13:13 | W.INDIABCONS ---
Date of service: 09/10/20 Time of Service: 11:15
--- NOTE | 2020-09-10 13:14 | W.INDIABCONS ---
Date of service: 09/10/20 Time of Service: 11:15 Diabetes Inpatient Consult DESCRIPTION/ASSESSMENT: 35 y/o Male admitted for DKA. He had BG in the 600's on admission. New dx DM1. He is on sliding scale for meals and was able to correctly demonstrate use of his insulin pen w/ nursing present at this encounter. He is on 18 units Lantus HS for basl dose. BG levels still running in the low 200's as he continues to improve and stabilize. Pharm D El Rutledge emailed and asked if he had been seen for DM education r/t new dx. INTERVENTION: Educated patient on CHO counting, Carbs and Cals phone naima, and DM complications r/t long-term hyperglycemia. Reviewed desired target BG ranges. Provided literature on all aformentioned. Provided new accu-check guide me glucometer with ten test strips. Recommended he get Rx from PCP for more strips and lancets. Spoke with child care provider regarding F/U with patient and spouse who is interested in helping Hoang with his new life style changes to reduce his BG levels and get them into range. Provided BG and food log to reveal trends r/t exercise, insulin dosing and food intake. PLAN: Manjinder will arrange for F/U outpatient appointment with this RD to further his DM education, review food and BG records. He is a good candidate for a CGM and possibly medication adjustment moving forward. Time Spent in Nutritional Counseling and Treatment: 20 minutes
--- NOTE | 2020-09-10 16:04 | CMPROGNOTE_ITS ---
- If Service Date Differs Date of service: 09/10/20 Time of Service: 16:04 Care Management Progress Note S/O: CM coordinated a conversation with Manjinder and [facility] today to work on his insurance needs. He was approved by [facility] today, as of 09/10/20, therefore CM provided a patient assistance packet to him for the remainder of his time at [facility]. He met with the community nutrition educator today, which was very helpful for him. He received a glucometer today from the CT. Per MD, he will remain at [facility] for one more day of IV abx, and will be ready for discharge tomorrow. CM will continue to follow. A: Manjinder is a 35 year old male admitted to [facility] on 09/07/20 for DKA. P:Manjinder was approved for [facility] today. He will return home when medically cleared. His family will drive him home via private vehicle. He will follow up with his PCP and discharge plan of care. CM will continue to follow.
--- NOTE | 2020-09-10 16:04 | PDOC.CMPRO ---
- If Service Date Differs Date of service: 09/10/20 Time of Service: 16:04 Care Management Progress Note S/O: CM coordinated a conversation with Manjinder and [facility] today to work on his insurance needs. He was approved by [facility] today, as of 09/10/20, therefore CM provided a patient assistance packet to him for the remainder of his time at [facility]. He met with the community health educator today, which was very helpful for him. He received a glucometer today from the PR. Per MD, he will remain at [facility] for one more day of IV abx, and will be ready for discharge tomorrow. CM will continue to follow. A: Manjinder is a 35 year old male admitted to [facility] on 09/07/20 for DKA. P:Manjinder was approved for [facility] today. He will return home when medically cleared. His family will drive him home via private vehicle. He will follow up with his PCP and discharge plan of care. CM will continue to follow.
[2020-09-10 16:06] VITALS: BP 105/69; PULSE 82; RESP 16; TEMP 36.4; O2SAT 95
--- NOTE | 2020-09-10 20:33 | PGE_ITS ---
Date of Service Date of service: 09/10/20 Time of Service: 17:33 Assessment and Plan Assessment and plan (1) Diabetic ketoacidosis: Status: Acute Assessment and plan: Ketoacidosis has resolved, now eating and successfully transitioned to basal insulin. See below. (2) Type 1 diabetes mellitus: Status: Acute Assessment and plan: Given the patient's young age, thin body habitus, sensitivity to insulin, and presentation with acute diabetic ketoacidosis, I feel comfortable with the diagnosis of type 1 diabetes without antibody testing. He is gotten additional diabetic education today and has a monitor.. Medical insurance pending this morning, did get approved in afternoon so he will have access to outpatient insulin. Long-term, we will plan on endocrinology follow-up as an outpatient at [facility]. (3) Dental abscess: Status: Acute Assessment and plan: Continue IV ampicillin/sulbactam, improving, but I think would benefit from additional IV therapy given he initial failed outpatient amox/clav (was also profoundly hyperglycemic). Would complete 2 week course upon discharge. (4) Hypokalemia: Status: Acute Assessment and plan: Related to DKA. Now normalized. (5) Opioid dependence on agonist therapy: Status: Acute Assessment and plan: Has been stable on buprenorphine/naloxone. Continue outpatient dose. (6) Hyperlipidemia: Status: Acute Assessment and plan: Extremely high LDL and hydroglycerides the week befor e admission. This level he would qualify for statin therapy at his age. However, given his developing acidosis and profound hyperglycemia when these tests were done, I think it should be repeated before initiating therapy. He is likely to still qualify for statin therapy given his type 1 diabetes. (7) Tobacco chew use: Status: Acute Assessment and plan: He is interested in quitting. Has nicotine replacement therapy ordered. He may benefit from lozenge or gum prescription on discharge as follows referral to quit works. Continue to support. (8) DVT prophylaxis: Status: Acute Assessment and plan: Low risk due to age, mobile. (9) Discharge planning issues: Status: Acute Assessment and plan: Stable on the floor today. He still needs IV antibiotics for the facial infection. Should be ready to go with insurance upon discharge tomorrow. Has PCP at [facility] as well. Subjective Subjective Patient reports: tolerating a regular diet and voiding w/o difficulty; denies diarrhea, nausea, vomiting, shortness of breath and fever Interval history since last seen: 24 hr: no events Feeling better. Swelling in face is improving. Still a little tender. Exam Narrative Exam Narrative: GEN: Alert and oriented, pleasent and cooperative, gives linear history. No acute distress at rest. HEENT: Conjunctiva clear, no icterus. MMM, poor dentition, with very mildly tender swelling along left mandible less prominent. neck is supple with no masses. LUNGS: CTAB with normal effort CV: RRR with no murmurs, gallops, or rubs. ABD: +BS, soft, NT/ND EXT: no cyanosis, clubbing, or edema SKIN: No rashs or open wounds. Objective Last Vital Signs Temp 36.4 C 09/10/20 16:06 Pulse 82 09/10/20 16:06 Resp 16 09/10/20 16:06 BP 105/69 09/10/20 16:06 Pulse Ox 95 09/10/20 16:06
[2020-09-10 21:01] VITALS: BP 97/67; PULSE 89; RESP 18; TEMP 36.7; O2SAT 97
[2020-09-10] MEDS: Gabapentin 800 MG TAB 1600 MG PO (21:04)
[2020-09-10] MEDS: Insulin Glargine 300 UNITS/3 ML PEN 18 UNITS SC (21:06)
[2020-09-10 23:08] VITALS: BP 98/62; PULSE 72; RESP 20; TEMP 36.2; O2SAT 100
[2020-09-11] MEDS: AMPICILLIN/SULBACTAM 3 GM in Normal Saline 100 ML IVPB ×2 (02:24→09:30)
[2020-09-11 05:30] VITALS: PULSE 76; RESP 18; TEMP 36.2; O2SAT 94
[2020-09-11 06:25] VITALS: BP 89/59
[2020-09-11 07:46] VITALS: BP 92/59; PULSE 79; RESP 17; TEMP 36.7; O2SAT 97
[2020-09-11] MEDS: Buprenorphine/Naloxone 8 mg/2 mg FILM 1 EACH SL (09:27)
[2020-09-11] MEDS: Potassium Chloride 20 MEQ TABCR PO (09:27)
[2020-09-11] MEDS: Insulin Aspart 300 UNITS/3 ML PEN SC ×2 (09:28→11:58)
[2020-09-11] MEDS: Insulin Aspart 300 UNITS/3 ML PEN 6 UNITS SC ×2 (09:29→11:57)
--- NOTE | 2020-09-11 10:26 | W.PM.DS.N ---
Date of service: 09/11/20 Time of Service: 10:27 DS: Diagnosis Discharge Diagnosis (1) Diabetic ketoacidosis: Status: Acute (2) Type 1 diabetes mellitus: Status: Acute (3) Dental abscess: Status: Acute (4) Hypokalemia: Status: Acute (5) Opioid dependence on agonist therapy: Status: Acute (6) Hyperlipidemia: Status: Acute (7) Tobacco chew use: Status: Acute (8) DVT prophylaxis: Status: Acute (9) Discharge planning issues: Status: Acute Discharge Plan Disposition Patient Disposition: HOME Condition: Good Discharge Details Reason For Visit: DKA Admit Date/Time: 09/09/20 20:16 Admit Provider: Silviano Arellano Attending Provider: Silviano Arellano Primary Care Provider: Adolfo Trammell Hospital Course Hospital Course: Call Dr Gillis, DDS/oral surgeon at [phone] for appt. Home Meds and New Rx's Prescriptions: New Lantus Solostar U-100 Insulin 100 unit/mL (3 mL) Insulin Pen 18 unit subcut HS Qty: 9 RF: 0 nicotine (polacrilex) [Nicorette] 2 mg gum 2 mg buccal Q2H Qty: 50 RF: 1 insulin aspart U-100 100 unit/mL cartridge See Rx Instructions .ROUTE .COMPLEX Qty: 15 RF: 0 levofloxacin 750 mg tablet 750 mg PO DAILY Qty: 14 RF: 0 clindamycin HCl 300 mg capsule 300 mg PO QID Qty: 28 RF: 0 Continued chlorhexidine gluconate 0.12 % mouthwash 15 ml mucous membrane BID Qty: 473 RF: 0 albuterol sulfate 90 mcg/actuation HFA aerosol inhaler 2 puff IH Q4H PRN (Reason: bronchospasm) Qty: 6.7 RF: 0 buprenorphine-naloxone [Suboxone] 1 EACH film 1 ea Sublingual DAILY RF: 0 omeprazole 40 mg capsule,delayed release(DR/EC) 40 mg PO DAILY Qty: 90 RF: 3 gabapentin 800 mg tablet 1,600 mg PO HS RF: 0 Discontinued amoxicillin-pot clavulanate [Augmentin] 875-125 mg tablet 1 tab PO BID Qty: 14 RF: 0 PROVENTIL HFA 18 GM HFA.AER.AD 1 - 2 puff Inhalation Q4H PRN Qty: 1 RF: 4 Discharge Instructions Referrals: ENDOCRINOLOGY,[facility] [place] [OTHER] - (DM1) Activity:: Activity as Tolerated Equipment/Supplies:: Blood Glucose Monitor Diet:: Carb Counting Discharge Orders Discharge Orders: Discharge Order (Routine); Ordered 09/11/20 Ordered By: Mazin Anna DS: Summary Time Spent with Patient providing and/or coordinating discharge services: Greater than 30 minutes Status at Discharge Functional status at discharge: independent ambulation Overall status at discharge: patient is back to baseline Mental Status: mental status grossly normal Speech and Movement: speech and movement normal Mood: congruent mood Affect: normal affect Exam Const General: cooperative and no acute distress Nutritional Appearance: average body habitus Orientation: alert and oriented x3 Resp Effort & Inspection: normal respiratory effort Auscultation: clear to auscultation bilaterally Cardio Rate: regular rate Rhythm: regular rhythm Heart Sounds: S1 normal and S2 normal GI Palpation: soft and nontender Skin General skin exam: no rashes or lesions noted Extrem General: no pedal edema and no calf tenderness Psych Mental Status: mental status grossly normal Speech and Movement: speech and movement normal Mood: congruent mood Affect: normal affect DS: Data Vitals/I&O Vitals and I&O: Vital Signs Temperature 36.7 C 09/11/20 07:46 Temperature Source Tympanic 09/11/20 07:46 Pulse 79 09/11/20 07:46 Pulse Rhythm Regular 09/11/20 09:40 Pulse 83 09/09/20 14:23 Respiratory Rate 17 09/11/20 07:46 Respiratory Effort Non-Labored 09/11/20 09:40 Respiratory Depth Normal 09/11/20 09:40 Respiratory Pattern Normal 09/11/20 09:40 Blood Pressure 92/59 L 09/11/20 07:46 Blood Pressure Mean 70 09/09/20 14:23 Blood Pressure Position Supine 09/09/20 04:13 Pulse Oximetry 97 09/11/20 07:46 Oxygen Delivery Method Room Air 09/11/20 07:46 Oxygen Flow Rate 0 09/11/20 07:46 Pain Level 0 09/11/20 07:46 Intake & Output 09/10/20 09/10/20 09/11/20 11:59 23:59 11:59 Intake Total 920 / 2385 1465 / 2385 410 / 410 Balance 920 / 2385 1465 / 2385 410 / 410 Weight 60.9 kg Intake: IV 200 / 425 225 / 425 110 / 110 Oral 720 / 1960 1240 / 1960 300 / 300 Other: Urine Color Yellow Yellow Urine Appearance Clear Clear Clear Urine Odor Strong Normal Comment Patient reports normal urination in toilet Voiding Methods Toilet Toilet [facility] Medical History GERD (gastroesophageal reflux disease) Hyperlipidemia Opioid dependence on agonist therapy Tobacco chew use Type 1 diabetes mellitus Surgical History Vasectomy (09/24/17) Social History Smoking/Tobacco Use Status: Current every day Tobacco Type: smokeless tobacco Smokeless tobacco user: chewing tobacco Quit status: not considering quitting Smoking risk assessment performed?: Yes Alcohol Intake: current Alcohol Intake frequency: 0-2 drinks per day Alcohol type: beer Drug use: Daily Substance use type: marijuana Details: pt states he has been cutting back on alcohol, has 3 drinks every other day. Had two beers on way here. Caregiver/Support person: No Household members: significant other and children Housing: apartment Communication Needs: None Do you need help understanding health information?: Rarely Pets and animals: No Sexually active: Yes Do you think of yourself as: straight/heterosexual Current gender identity: male What is your relationship status?: living with partner How often do you talk on the phone with friends or family?: three or more times per week How often do you get together with friends or relatives?: three or more times per week How often do you attend nondenominational or nondenominational services?: decline to answer Do you belong to any clubs or organized social groups?: decline to answer Panel score (0-1 are the most socially isolated patients): 2 What type of physical activity do you participate in: none Frequency: does not exercise Barbi/Congregational: None Special barbi needs: No Seatbelt use: always Helmet use: No Drive intox or ride w/intox high lift driver: No Do you feel safe at home: Yes Do you feel safe in your relationship?: Yes
[2020-09-11 11:41] VITALS: BP 119/81; PULSE 84; RESP 18; TEMP 37; O2SAT 97
--- NOTE | 2020-09-11 12:45 | PDOC.CMDIS ---
LACE Index Scoring Tool - Questions: Length of Stay (in days): 4 - 6 Acuity (Admit via E.D.?): Yes Comorbidities: Diabetes w/o Complication E.D. Visits: 1 - Answers: Total Score: 9 Risk of Readmission: Low Risk Care Management Discharge Reason for Hospitalization: DKA Discharge Plan: Manjinder will return home when ready per MD. He will follow up with his PCP and discharge plan of care. He will also have new prescriptions for diabetic supplies, now has [facility] coverage and will follow up as an outpatient with change number operator. His family will drive him home via private vehicle. Patient/Family Education Needs: Review discharge instructions, discuss Ask Me Three.
== END 2020-09-11 14:26 | disposition home or self-care (01) | DRG 638 ==
LOC: ER 22:21 → ICU 22:58 → MS 09-10 09:46 → ER 09-10 10:02 → MS 09-10 11:05
PROVIDERS: Family Medicine; Admitting Provider Internal Medicine; Emergency Provider Physician Assistant; PCP Family Medicine; Visit Provider Internal Medicine
DX: E10.10 Type 1 diabetes mellitus with ketoacidosis without coma (principal); E87.1 Hypo-osmolality and hyponatremia; F11.20 Opioid dependence, uncomplicated; E78.5 Hyperlipidemia, unspecified; M27.2 Inflammatory conditions of jaws; K04.7 Periapical abscess without sinus; F17.220 Nicotine dependence, chewing tobacco, uncomplicated; E87.6 Hypokalemia
CPT/HCPCS: 36415; 36416; 80048; 80053; 82805; 82962; 96361; 96365; 96366; 96367; 96368; 96372; 99223; 99232; 99233; 99239; 99285; J1650; U0003; 81003; 81015; 83605; 83735; 84100; 85025; J0295; J3480

== ENCOUNTER 2020-09-20 03:07 | Outpatient (CLI) | payer MEDICAID, SELFPAY ==
--- NOTE | 2020-09-20 16:00 | NS.NUTBLAN_ITS ---
ASSESSMENT: Manjinder (35 y/o M) presents w/ referral from Dr. Trammell for further DM education and Placement of Dexcom g-6 CGM. He is currently on 25 u lantus HS and Inulin to carb ratio. of 1 :40 for meals. He reports some elevated sugars as high as 250 mg/dl at night. he relates this to snacking on Cheezits and wheat thins at night. 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 He has been eating less processed fooods and drinking H2O. He reports no ETOH. INTERVENTION: Educated Manjinder on the trend arrows function of the dexcom device and reviewed action plans for hypo and hyperglycemic episodes stressing the value of pre- emptive action. He was able to recite appropriate action plans for these scenarios. Expalined BG vs intersttial fluid lag time using the dexcom device. Recommended paring Pro and CHO's during snacking to help mitigate nocturnal BG spikes prior to bedtime. Reviewed goals for TIR, GV and set his CGM alarms for 80-200 mg/dl based on hx DKA and potential for hypoglycemia based on new insulin regimen and determining his sensitivity to the drug. Placed device and explained that he can set up the data sharing feature and discuss potential med adjustments with Denzel Rutledge at his tele med appointment today. MONITOR/EVAL: Manjinder is motivated and has been communicating well with IDT including PCP, DPharm and this RD to work on self management tecniques for this new dx. He will need further f/u on foods and continnued reiteration of CHO counting along with insulin regemin r/t his highly physical job. Recommend f/u visit to [facility] DM educator in 10 days to review and evaluate CGM data to present to PCP for analysis. Time Spent Face to Face : 1 hour/4 units
--- NOTE | 2020-09-28 11:59 | W.DIABETESNO ---
Date of service: 09/20/20 Time of Service: 16:00 Diabetes Note NOTE: ASSESSMENT: Manjinder (35 y/o M) presents w/ referral from Dr. Trammell for further DM education and Placement of Dexcom g-6 CGM. He is currently on 25 u lantus HS and Inulin to carb ratio. of 1 :40 for meals. He reports some elevated sugars as high as 250 mg/dl at night. he relates this to snacking on Cheezits and wheat thins at night. 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 He has been eating less processed fooods and drinking H2O. He reports no ETOH. INTERVENTION: Educated Manjinder on the trend arrows function of the dexcom device and reviewed action plans for hypo and hyperglycemic episodes stressing the value of pre-emptive action. He was able to recite appropriate action plans for these scenarios. Expalined BG vs intersttial fluid lag time using the dexcom device. Recommended paring Pro and CHO's during snacking to help mitigate nocturnal BG spikes prior to bedtime. Reviewed goals for TIR, GV and set his CGM alarms for 80-200 mg/dl based on hx DKA and potential for hypoglycemia based on new insulin regimen and determining his sensitivity to the drug. Placed device and explained that he can set up the data sharing feature and discuss potential med adjustments with Denzel Rutledge at his tele med appointment today. MONITOR/EVAL: Manjinder is motivated and has been communicating well with IDT including PCP, Denzel and this RD to work on self management tecniques for this new dx. He will need further f/u on foods and continnued reiteration of CHO counting along with insulin regemin r/t his highly physical job. Recommend f/u visit to [facility] DM educator in 10 days to review and evaluate CGM data to present to PCP for analysis. Time Spent Face to Face : 1 hour/4 units Time Spent in Nutritional Counseling and Treatment: 1 hr/4 units
== END 2020-09-20 03:08 | disposition home or self-care (01) ==
LOC: DS 03:07
PROVIDERS: PCP Family Medicine; Visit Provider Dietitian, Registered
DX: E10.9 Type 1 diabetes mellitus without complications (principal); Z79.4 Long term (current) use of insulin; Z71.3 Dietary counseling and surveillance
CPT/HCPCS: 97802

== ENCOUNTER 2022-01-24 10:33 | Outpatient (REF) | payer MEDICAID, SELFPAY ==
[2022-01-23 21:13] LABS: CREATININE 1.2 mg/dL (0.70-1.30); Calculated LDL 106 mg/dL (<100); Cholesterol 203 mg/dL (<200); HDL Cholesterol 59 mg/dL (40-60); Triglyceride 191 mg/dL (<150)
[2022-01-23 21:24] LABS: COMMENT (LAB VIEW ONLY) < 13.00 mg/dL
== END 2022-01-24 10:34 | disposition home or self-care (01) ==
LOC: LBN 10:33
PROVIDERS: PCP Family Medicine; Visit Provider Family Medicine
DX: I10 Essential (primary) hypertension (principal); E11.9 Type 2 diabetes mellitus without complications; E78.5 Hyperlipidemia, unspecified
CPT/HCPCS: 80061; 82043; 82565; 82570

== ENCOUNTER 2022-09-30 09:21 | Outpatient (CLI) | payer MEDICAID, SELFPAY ==
[2022-09-30 12:34] LABS: Calculated LDL 98 mg/dL (<100); Cholesterol 194 mg/dL (<200); Estimated GFR 99.41 (mL/min/1.73m2); HDL Cholesterol 77 mg/dL (40-60); Triglyceride 97 mg/dL (<150)
== END 2022-09-30 09:22 | disposition home or self-care (01) ==
LOC: LOS 09:21
PROVIDERS: PCP Family Medicine; Referring Provider Family Medicine; Visit Provider Family Medicine
DX: I10 Essential (primary) hypertension (principal); E78.5 Hyperlipidemia, unspecified
CPT/HCPCS: 36415; 80061; 82565

== ENCOUNTER 2023-07-20 06:47 | Emergency (ER) | payer MEDICAID, SELFPAY ==
[2023-07-20 06:52] VITALS: BP 142/99; PULSE 84; RESP 18; TEMP 37; O2SAT 96
[2023-07-20] MEDS: Benzocaine 20% Gel 30 GM JAR MM (07:16)
[2023-07-20] MEDS: Penicillin V POTASSIUM 500 MG TAB PO (07:16)
--- NOTE | 2023-07-20 07:37 | ED.GENADUL_ITS ---
Discharge Plan Disposition Patient Disposition: Home Condition: Stable Discharge Details Clinical Impression: Dental abscess Primary Care Provider: Adolfo Trammell ED Provider: Jamaal Odonnell [place] Meds and New Rx's Prescriptions: New penicillin V potassium 500 mg tablet 500 mg PO QID Qty: 39 0RF Continued gabapentin 800 mg tablet 800 mg PO TID Qty: 270 3RF buprenorphine-naloxone [Suboxone] 1 EACH film 1 ea Sublingual DAILY (DME) Dexcom G6 Immigration Consultant Misc See Rx Instructions .ROUTE .MEDSUPPLY Qty: 1 0RF Rx Instructions: As directed insulin aspart U-100 100 unit/mL (3 mL) insulin pen See Rx Instructions subcut TID Qty: 15 5RF Rx Instructions: < 140 0 units 140-180 1 181-220 2 221-260 3 261-300 4 301-340 5 341- 400 6 Over 401 8 units and call provider subcutaneously three times a day; (DME) Dexcom G6 Transmitter Device See Rx Instructions .ROUTE .MEDSUPPLY Qty: 1 2RF Rx Instructions: As directed (DME) Dexcom G6 Sensor Device See Rx Instructions .ROUTE .MEDSUPPLY Qty: 3 11RF Rx Instructions: As directed disulfiram 250 mg tablet 250 mg PO DAILY PRN (Reason: alcoholism) Qty: 60 2RF glucagon (human recombinant) 1 mg recon soln 1 mg subcut Q20M PRN (Reason: hypoglycemia) Qty: 1 2RF Rx Instructions: until target blood sugar attained (DME) pen needle, diabetic [Comfort EZ Pen [place]orne] 33 gauge x 3/16 needle See Rx Instructions .ROUTE .MEDSUPPLY Qty: 400 3RF Rx Instructions: inject 4 x/day insulin glargine [Lantus Solostar U-100 Insulin] 100 unit/mL (3 mL) insulin pen 21 unit subcut QAM Qty: 15 4RF (DME) lancets [Lancets,Ultra Thin] Misc See Rx Instructions .ROUTE .MEDSUPPLY Qty: 100 0RF Rx Instructions: As directed (DME) Accu-Chek Guide test strips Strip See Rx Instructions .ROUTE .MEDSUPPLY Qty: 100 0RF Rx Instructions: As directed Discharge Instructions Instructions: Dental Abscess (ED) Additional Instructions: Please take full course of antibiotic as prescribed. Please call your oral surgeon today to arrange timely outpatient follow-up. Additional outpatient dental treatment will be necessary. Please stop using tobacco products. Please contact your primary care physician to arrange follow-up. Return to the ER immediately for any worsening or new concerning symptoms. Referrals: Adolfo Trammell MD [Primary Care Provider] - Medical Decision Making 37-year-old male here with recurrent dental abscess left lower molar with associated facial swelling. Incision and drainage was performed after verbal informed consent obtained. I&D was performed without complication. Patient provided initial dose of penicillin. Usual customary discharge instructions were reviewed with the patient he was encouraged to call his oral surgeon today to arrange timely follow-up. He understands importance of continuing antibiotic treatment as prescribed. He was advised to return for any worsening or new concerning symptoms. HPI General Mode of arrival: ambulatory . Date/Time Provider Initiated Documentation: 07/20/23 06:55 . Limitations to Documentation: no limitations . Information obtained by: patient . HPI Narrative: 37-year-old male here with facial swelling and dental pain. Patient notes prior history of dental abscess in the same area a few years ago that was treated with antibiotics and he unfortunate was not able to follow-up with oral surgery. He continues to chew tobacco. Swelling and pain started today and has persisted since onset. Patient here seeking antibiotic treatment. Related Data Home Medications Medication Instructions Recorded Confirmed buprenorphine 8 mg-naloxone 2 mg 1 ea sublingual DAILY 09/04/14 07/20/23 sublingual film (Suboxone) blood sugar diagnostic (Accu-Chek #100 ea 09/11/20 07/20/23 Guide test strips) lancets (Lancets,Ultra Thin) #100 ea 09/11/20 07/20/23 blood-glucose meter,continuous #1 ea 07/24/21 07/20/23 (Dexcom G6 Immigration Consultant) insulin aspart U-100 100 unit/mL See Rx Instructions subcut TID #15 09/05/22 07/20/23 (3 mL) subcutaneous pen mL gabapentin 800 mg tablet 800 mg PO TID #270 tabs 09/30/22 07/20/23 blood-glucose sensor (Dexcom G6 #3 ea 12/29/22 07/20/23 Sensor device) blood-glucose transmitter (Dexcom #1 ea 12/29/22 07/20/23 G6 Transmitter device) disulfiram 250 mg tablet 250 mg PO DAILY PRN alcoholism #60 03/09/23 07/20/23 tab-caps glucagon (human recombinant) 1 mg 1 mg subcut Q20M PRN hypoglycemia 03/09/23 07/20/23 solution for injection #1 ea pen needle, diabetic 33 gauge x #400 ea 03/16/23 07/20/23 3/16 (Comfort EZ Pen [place]orne) insulin glargine 100 unit/mL (3 21 unit (0.21 mL) subcut QAM #15 mL 04/14/23 07/20/23 mL) subcutaneous pen (Lantus Solostar U-100 Insulin) penicillin V potassium 500 mg 500 mg PO QID #39 tabs 07/20/23 tablet Previous Rx's Medication Instructions Recorded blood sugar diagnostic (Accu-Chek #100 ea 09/11/20 Guide test strips) lancets (Lancets,Ultra Thin) #100 ea 09/11/20 blood-glucose meter,continuous #1 ea 07/24/21 (Dexcom G6 Immigration Consultant) insulin aspart U-100 100 unit/mL See Rx Instructions subcut TID #15 09/05/22 (3 mL) subcutaneous pen mL gabapentin 800 mg tablet 800 mg PO TID #270 tabs 09/30/22 blood-glucose sensor (Dexcom G6 #3 ea 12/29/22 Sensor device) blood-glucose transmitter (Dexcom #1 ea 12/29/22 G6 Transmitter device) disulfiram 250 mg tablet 250 mg PO DAILY PRN alcoholism #60 03/09/23 tab-caps glucagon (human recombinant) 1 mg 1 mg subcut Q20M PRN hypoglycemia 03/09/23 solution for injection #1 ea pen needle, diabetic 33 gauge x #400 ea 03/16/23 316 (Comfort EZ Pen [place]orne) insulin glargine 100 unit/mL (3 21 unit (0.21 mL) subcut QAM #15 mL 04/14/23 mL) subcutaneous pen (Lantus Solostar U-100 Insulin) penicillin V potassium 500 mg 500 mg PO QID #39 tabs 07/20/23 tablet Allergies Allergy/AdvReac Type Severity Reaction Status Date / Time No Known Allergies Allergy Verified 07/20/23 06:55 General Stated Complaint: DentalOral SHANTHI: 4 Review of Systems Constitutional Constitutional: Denies fever(s) ENT Ears, Nose, Mouth, and Throat: Reports as per HPI PFSH All Active Problems Dental abscess (Acute) Mood disorder (Acute) Hypoglycemia (Acute) Carpal tunnel syndrome on both sides (Acute) Tobacco chew use (Acute) Hyperlipidemia (Acute) Opioid dependence on agonist therapy (Acute) Discharge planning issues (Acute) DVT prophylaxis (Acute) Hypokalemia (Acute) Type 1 diabetes mellitus (Acute) Hyponatremia (Acute) Diabetic ketoacidosis (Acute) Acute osteomyelitis of mandible (Acute) Dental abscess (Acute) DKA (diabetic ketoacidoses) (Acute) Elective sterilization (Acute) Medical History GERD (gastroesophageal reflux disease) Surgical History Vasectomy (09/24/17) Social History Smoking/Tobacco Use Status: Current every day Tobacco Type: smokeless tobacco Smokeless tobacco user: chewing tobacco Quit status: considering quitting Second Hand Exposure: Yes Smoking risk assessment performed?: Yes Alcohol Intake: current Alcohol Intake frequency: 3 or more drinks per day Alcohol type: hard liquor Drug use: Daily Substance use type: marijuana Caregiver/Support person: No Housing: apartment Communication Needs: None Pets and animals: No Sexually active: Yes Do you think of yourself as: straight/heterosexual Current gender identity: male Do you feel safe at home: Yes Do you feel safe in your relationship?: Yes Exam Const General: cooperative and no acute distress HENMT Face and sinus: other (Left lower lateral swelling over mandible) Mouth: moist mucous membranes Teeth and gingiva: abnormal dentition, poor dentition and other (Multiple chronic fractures) Throat: posterior oropharynx normal Other: Palpable fluctuance along gumline tooth #17 and 18 Neck Neck: no lymphadenopathy, trachea midline and supple Cardio Rate: regular rate Course Vital Signs Vital signs: Vital Signs Temperature 37.0 C 07/20/23 06:52 Pulse 84 07/20/23 06:52 Respiratory Rate 18 07/20/23 06:52 Blood Pressure 142/99 H 07/20/23 06:52 Pulse Oximetry 96 07/20/23 06:52 Temperature 37.0 C 07/20/23 06:52 Temperature Source Skin 07/20/23 06:52 Pulse 84 07/20/23 06:52 Respiratory Rate 18 07/20/23 06:52 Respiratory Effort Normal, Non-Labored 07/20/23 06:56 Blood Pressure 142/99 H 07/20/23 06:52 Blood Pressure Position Sitting 07/20/23 06:52 Pulse Oximetry 96 07/20/23 06:52 Oxygen Delivery Method Room Air 07/20/23 06:52 Oxygen Flow Rate 0 07/20/23 06:52 Pain Level 0 07/20/23 07:03 Procedures Abscess I/D Site: Other (dental) Side (if applicable): Left Sedation/analgesia: None Local Anesthetic: Other Anesthetic (hurricane gel) Technique: Incised with #11 Blade Amount of fluid expressed (mL): 1 Packing used?: None PAWSS Have you Been Recently Intoxicated or Drunk Within the Last 30 days?: No Have you Ever Experienced Previous Episodes of Alcohol Withdrawal?: Yes Have you ever Experienced Withdrawal Seizures?: No Have you ever Experienced Delirium Tremens(DT)s?: No Have you ever undergone Alcohol Rehabilitation Treatment (i.e, inpt ot outpatient treatment programs)?: Yes Have you ever Experienced Blackouts?: No Have you ever Combined Alcohol with other Downers within the last 90 days?: No Have you ever Combined Alcohol with any other Substance of Abuse during the last 90 days?: Yes Positive Blood Alcohol level on Presentation? [PCS.BAL]: No Evidence of Increased Autonomic Activity (i.e. HR>120, tremor, sweating, agitation, nausea)?: No Result: 4
[2023-07-20 07:52] VITALS: BP 132/89; PULSE 94; RESP 18; O2SAT 95
== END 2023-07-20 07:53 | disposition home or self-care (01) ==
LOC: ER 14:18
PROVIDERS: Emergency Provider Student in an Organized Health Care Education/Training Program; PCP Family Medicine
DX: R68.84 Jaw pain (principal); K04.7 Periapical abscess without sinus
CPT/HCPCS: 41800

== ENCOUNTER 2023-12-29 13:30 | Outpatient (REF) | payer SELFPAY ==
[2023-12-29 21:30] LABS: COMMENT (LAB VIEW ONLY) < 13.00 mg/dL
== END 2023-12-29 13:31 | disposition home or self-care (01) ==
LOC: LBN 13:30
PROVIDERS: Visit Provider Family Medicine
DX: E11.9 Type 2 diabetes mellitus without complications (principal)
CPT/HCPCS: 82043; 82570

== ENCOUNTER 2024-03-16 05:53 | Emergency (ER) | payer SELFPAY ==
--- NOTE | 2024-03-16 05:55 | W.ED.GENAD ---
Discharge Plan Disposition Patient Disposition: Home Condition: Good Discharge Details Clinical Impression: Pain, dental Primary Care Provider: Adolfo Trammell ED Provider: Nadia Mcdowell Meds and New Rx's Prescriptions: New amoxicillin-pot clavulanate 875-125 mg tablet 1 tab PO Q12H Qty: 26 0RF Continued chlorhexidine gluconate 0.12 % mouthwash 15 ml mucous membrane DAILY Qty: 473 2RF (DME) Dexcom G6 Telephone Switchboard Operator Misc See Rx Instructions .ROUTE .MEDSUPPLY Qty: 1 0RF Rx Instructions: As directed buprenorphine-naloxone [Suboxone] 1 EACH film 1 ea Sublingual DAILY glucagon (human recombinant) 1 mg recon soln 1 mg subcut Q20M PRN (Reason: hypoglycemia) Qty: 1 2RF Rx Instructions: until target blood sugar attained (DME) pen needle, diabetic [Comfort EZ Pen [place]] 33 gauge x 3/16 needle See Rx Instructions .ROUTE .MEDSUPPLY Qty: 400 3RF Rx Instructions: inject 4 x/day (DME) Dexcom G6 Transmitter Device See Rx Instructions .ROUTE .MEDSUPPLY Qty: 1 2RF Rx Instructions: As directed gabapentin 800 mg tablet 800 mg PO TID Qty: 270 3RF (DME) Dexcom G6 Sensor Device See Rx Instructions .ROUTE .MEDSUPPLY Qty: 3 11RF Rx Instructions: As directed insulin glargine [Lantus Solostar U-100 Insulin] 100 unit/mL (3 mL) insulin pen 21 unit subcut QAM Qty: 15 4RF insulin aspart U-100 100 unit/mL (3 mL) insulin pen See Rx Instructions subcut TID Qty: 15 0RF Rx Instructions: < 140 0 units 140-180 1 181-220 2 221-260 3 261-300 4 301-340 5 341-400 6 Over 401 8 units and call provider subcutaneously three times a day; disulfiram 250 mg tablet 250 mg PO DAILY PRN (Reason: alcoholism) Qty: 60 2RF (DME) lancets [Lancets,Ultra Thin] Misc See Rx Instructions .ROUTE .MEDSUPPLY Qty: 100 0RF Rx Instructions: As directed (DME) Accu-Chek Guide test strips Strip See Rx Instructions .ROUTE .MEDSUPPLY Qty: 100 0RF Rx Instructions: As directed Discharge Instructions Instructions: Dental Pain ED Additional Instructions: Tylenol and ibuprofen over the counter as needed for pain; follow the directions on the bottle. Antibiotic twice a day for the next 14 days. You need to see a dentist; untreated tooth infections can kill you or lead to permanent disability. We cannot pull teeth or treat the cause of your repeated infections in the emergency department. Return to the emergency department for new or worsening symptoms including fever, worsening pain/swelling, inability to swallow, difficultly breathing, neck pain, inability to open your mouth, or if you have any other concerns. HPI General Mode of arrival: ambulatory. Date/Time Provider Initiated Documentation: 03/16/24 05:55. Limitations to Documentation: no limitations. Information obtained by: patient. HPI Narrative: 38yo M with hx DM presenting with dental pain. Has had prior flares of left lower molar pain with facial swelling, symptoms typically improve with antibiotics. Has not seen a dentist for this. Yesterday evening began to note pain in his left lower molars, this morning woke with some swelling to his left face. No fevers, chills, rash, nausea, vomiting, difficultly swallowing, neck pain, or other concerns. Otherwise in his usual state of health. Related Data Home Medications ?Medication ?Instructions ?Recorded ?Confirmed buprenorphine 8 mg-naloxone 2 mg 1 ea sublingual DAILY 09/04/14 03/16/24 sublingual film (Suboxone) blood sugar diagnostic (Accu-Chek #100 ea 09/11/20 12/29/23 Guide test strips) lancets (Lancets,Ultra Thin) #100 ea 09/11/20 12/29/23 glucagon (human recombinant) 1 mg 1 mg subcut Q20M PRN hypoglycemia 03/09/23 03/16/24 solution for injection #1 ea pen needle, diabetic 33 gauge x #400 ea 03/16/23 12/29/23 3/16 (Comfort EZ Pen [place]) chlorhexidine gluconate 0.12 % 15 ml mucous membrane DAILY #473 mL 07/21/23 03/16/24 mouthwash blood-glucose transmitter (Dexcom #1 ea 09/07/23 12/29/23 G6 Transmitter device) gabapentin 800 mg tablet 800 mg PO TID #270 tabs 10/19/23 03/16/24 blood-glucose meter,continuous #1 ea 12/29/23 12/29/23 (Dexcom G6 Telephone Switchboard Operator) blood-glucose sensor (Dexcom G6 #3 ea 01/09/24 Sensor device) disulfiram 250 mg tablet 250 mg PO DAILY PRN alcoholism #60 02/29/24 03/16/24 tab-caps insulin aspart U-100 100 unit/mL See Rx Instructions subcut TID #15 02/29/24 03/16/24 (3 mL) subcutaneous pen mL insulin glargine 100 unit/mL (3 21 unit (0.21 mL) subcut QAM #15 mL 02/29/24 03/16/24 mL) subcutaneous pen (Lantus Solostar U-100 Insulin) amoxicillin 875 mg-potassium 1 tab PO Q12H #26 tabs 03/16/24 clavulanate 125 mg tablet Previous Rx's ?Medication ?Instructions ?Recorded blood sugar diagnostic (Accu-Chek #100 ea 09/11/20 Guide test strips) lancets (Lancets,Ultra Thin) #100 ea 09/11/20 glucagon (human recombinant) 1 mg 1 mg subcut Q20M PRN hypoglycemia 03/09/23 solution for injection #1 ea pen needle, diabetic 33 gauge x #400 ea 03/16/2310/23 (Comfort EZ Pen [place]) chlorhexidine gluconate 0.12 % 15 ml mucous membrane DAILY #473 mL 07/21/23 mouthwash blood-glucose transmitter (Dexcom #1 ea 09/07/23 G6 Transmitter device) gabapentin 800 mg tablet 800 mg PO TID #270 tabs 10/19/23 blood-glucose meter,continuous #1 ea 12/29/23 (Dexcom G6 Telephone Switchboard Operator) blood-glucose sensor (Dexcom G6 #3 ea 01/09/24 Sensor device) disulfiram 250 mg tablet 250 mg PO DAILY PRN alcoholism #60 02/29/24 tab-caps insulin aspart U-100 100 unit/mL See Rx Instructions subcut TID #15 02/29/24 (3 mL) subcutaneous pen mL insulin glargine 100 unit/mL (3 21 unit (0.21 mL) subcut QAM #15 mL 02/29/24 mL) subcutaneous pen (Lantus Solostar U-100 Insulin) amoxicillin 875 mg-potassium 1 tab PO Q12H #26 tabs 03/16/24 clavulanate 125 mg tablet Allergies Allergy/AdvReac Type Severity Reaction Status Date / Time No Known Allergies Allergy Verified 03/16/24 06:10 General SHANTHI: 4 Review of Systems Narrative: see HPI Exam Narrative Exam Narrative: General: Alert, well appearing, well nourished, in no acute distress. Head: Normocephalic, atraumatic. Slight left facial swelling. Neck: Trachea midline, ?Neck supple. ENT: ?MMM.? No oropharygeal lesions or exudate. Poor dentition, carious teeth. Left mandibular molars tender to percussion, no clear apical/periapical abscess. Cardiac: ?RRR Resp: No respiratory distress. CTAB. Abd: ?Non-distended, Extremities: ?No deformities.? No peripheral edema. Neurologic: GCS 15. ? Moves all extremities freely against gravity Medical Decision Making 38yo M with hx DM presenting with dental pain. Yesterday evening began to note pain in his left lower molars, this morning woke with some swelling to his left face. Systemically well. Vital signs reassuring (HR 90's after ambulating in to triage, 70's during my assessment). Not septic. Exam not suggestive of deep space neck infection, oscar's, abscess, buccal space infection. No indication for labs or CT imaging. Will treat with tylenol, toradol, oral lidocaine here; prescribe 14 day course of amox-clauv. The importance of dental followup was stressed with patient. Discharged home; discharge instructions and return precautions were reviewed with patient who verbalized understanding. All questions were answered and he is in full agreement with the plan. Quality:SDOH Health Related Social Needs: No Data to Display PFSH All Active Problems (Updated 03/16/24 @ 06:29 by Nadia Mcdowell MD) Pain, dental (Acute) Mood disorder (Acute) Hypoglycemia (Acute) Carpal tunnel syndrome on both sides (Acute) Tobacco chew use (Acute) Hyperlipidemia (Acute) Opioid dependence on agonist therapy (Acute) Discharge planning issues (Acute) DVT prophylaxis (Acute) Hypokalemia (Acute) Type 1 diabetes mellitus (Acute) Hyponatremia (Acute) Diabetic ketoacidosis (Acute) Acute osteomyelitis of mandible (Acute) Dental abscess (Acute) DKA (diabetic ketoacidoses) (Acute) Elective sterilization (Acute) Medical History GERD (gastroesophageal reflux disease) Surgical History Vasectomy (09/24/17) Social History (System 01/15/24 @ 10:10 by Doris Sanders) Smoking/Tobacco Use Status: Current every day Tobacco Type: smokeless tobacco Smokeless tobacco user: chewing tobacco Quit status: considering quitting Second Hand Exposure: Yes Smoking risk assessment performed?: Yes Alcohol Intake: current Alcohol Intake frequency: 3 or more drinks per day Alcohol type: hard liquor Drug use: Daily Substance use type: marijuana Caregiver/Support person: No Housing: apartment Communication Needs: None Pets and animals: No Sexually active: Yes Do you think of yourself as: straight/heterosexual Current gender identity: male Do you feel safe at home: Yes Do you feel safe in your relationship?: Yes
[2024-03-16 06:08] VITALS: BP 150/100; PULSE 98; RESP 16; TEMP 37.1; O2SAT 98
[2024-03-16] MEDS: Acetaminophen 500 MG TAB 1000 MG PO (06:40)
[2024-03-16] MEDS: Amox. 875/Clav. 125, 2 TABS/BTL 1 TAB PO (06:40)
[2024-03-16] MEDS: Ketorolac 15 MG/ML VIAL IM (06:41)
[2024-03-16] MEDS: Amoxicillin 875/Clav. 125 TAB PO (06:41)
== END 2024-03-16 06:43 | disposition home or self-care (01) ==
LOC: ER 06:40
PROVIDERS: Emergency Provider Student in an Organized Health Care Education/Training Program; PCP Family Medicine
DX: K08.89 Other specified disorders of teeth and supporting structures (principal); E11.9 Type 2 diabetes mellitus without complications; E78.5 Hyperlipidemia, unspecified; F17.220 Nicotine dependence, chewing tobacco, uncomplicated; Z79.4 Long term (current) use of insulin
CPT/HCPCS: 99283; J1885